=== PATIENT | female | born 1985 | race Two or more races ===

== ENCOUNTER 2018-02-23 10:30 | Observation (INO) | payer OTHER ==
[2018-02-23] MEDS ORDERED: Lidocaine 1% 20 ML MDV INJECT ONE (11:08)
[2018-02-23] MEDS ORDERED: Morphine 10 MG/ML Syringe ONE (11:23)
[2018-02-23] MEDS ORDERED: Morphine 10 MG/ML Syringe IM ONE (11:24)
--- NOTE | 2018-02-23 11:36 | EDM.PDOC ---
ED HPI GENERAL MEDICAL PROBLEM - General Chief Complaint: General Stated Complaint: PAIN IN LEFT BREAST Time Seen by Provider: 02/23/18 10:45 Source of Information: Reports: Patient History Limitations: Reports: No Limitations - History of Present Illness INITIAL COMMENTS - FREE TEXT/NARRATIVE: Presents reporting left breast abscess. The patient states that she's been dealing with this for about a month and has been on a couple of different antibiotics. She did have a culture. She is scheduled to see Dr. Rose next week but the pain got so bad today that she could not take it anymore and the abscesses have now become fluctuant and one has started to drain. No fever or constitutional symptoms. She is not breast-feeding. She is currently on an oral antibiotic. Left Breast Pain Score (Numeric/FACES): 8 - Related Data Allergies Allergy/AdvReac Type Severity Reaction Status Date / Time No Known Allergies Allergy Verified 02/23/18 10:48 Home Meds: Home Meds . 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: Musculoskeletal History: Reports: None Neurological History: Reports: None Psychiatric History: Reports: None Endocrine/Metabolic History: Reports: None Hematologic History: Reports: None Immunologic History: Reports: None Oncologic (Cancer) History: Reports: None Dermatologic History: Reports: None - Infectious Disease History Infectious Disease History: Reports: Chicken Pox - Past Surgical History Head Surgeries/Procedures: Reports: None Cardiovascular Surgical History: Reports: None Female Surgical History: Reports: Tubal Ligation Endocrine Surgical History: Reports: None Neurological Surgical History: Reports: None Dermatological Surgical History: Reports: None Social & Family History - Family History Family Medical History: Noncontributory Hematologic: Reports: Anemia - Tobacco Use Smoking Status *Q: Never Smoker - Recreational Drug Use Recreational Drug Use: No ED ROS GENERAL - Review of Systems Review Of Systems: ROS reveals no pertinent complaints other than HPI. ED EXAM, GENERAL - Physical Exam Exam: See Below Exam Limited By: No Limitations General Appearance: Alert, No Apparent Distress Ears: Normal External Exam Nose: Normal Inspection Throat/Mouth: Normal Inspection Head: Atraumatic, Normocephalic Neck: Normal Inspection Respiratory/Chest: No Respiratory Distress, Lungs Clear Cardiovascular: Regular Rate, Rhythm, No Murmur GI/Abdominal: Soft Neurological: Alert, Oriented Psychiatric: Anxious, Tearful (Due to pain) Skin Exam: Warm, Dry, Intact, Normal Color, Other (Left breast two 2.5 cm abscesses at the 1:00 and 3:00 positions adjacent to the areola. Both are fluctuant and the 3:00 abscess is draining purulent discharge. Light pink surrounding the abscesses approximately 2-3 cm circumferentially) Lymphatic: No Adenopathy ED GENERAL MEDICAL PROCEDURES - Laceration/Wound Repair Left Breast Lac/wound length in cm: 2.5 (Incision and drainage, large amounts of purulent discharge. Packed with quarter inch packing strip) Course - Vital Signs Last Recorded V/S: Last Vital Signs Temp 35.9 C 02/23/18 10:45 Pulse 101 H 02/23/18 10:45 Resp 18 02/23/18 10:45 BP 130/96 H 02/23/18 10:45 Pulse Ox 96 02/23/18 10:45 - Orders/Labs/Meds Meds: Medications Discontinued Medications Generic Name Dose Route Start Last Admin Trade Name Chloé PRN Reason Stop Dose Admin Lidocaine HCl 20 ml 02/23/18 11:08 02/23/18 11:29 Xylocaine 1% INJECT 02/23/18 11:09 20 ml ONETIME ONE Administration Morphine Sulfate 6 mg 02/23/18 11:24 02/23/18 11:28 Morphine IM 02/23/18 11:25 6 mg ONETIME ONE Administration Morphine Sulfate Confirm 02/23/18 11:23 02/23/18 11:27 Morphine Administered 02/23/18 11:24 Not Given Dose 10 mg .ROUTE .STK-MED ONE Departure - Departure Time of Disposition: 11:36 Disposition: Home, Self-Care 01 Condition: Good Clinical Impression: Abscess - Discharge Information Referrals: PCP,Unknown [Primary Care Provider] - Zeina Perez MD [Physician] - Additional Instructions: 1. Warm moist packs 3 times a day for 20 minutes 2 abscesses. The abscess will drain. 2. If packing falls out, leaving it out--it is okay 3. Continue taking antibiotics 4. Follow up with Dr. Perez as previously scheduled on Sunday02/25/2018
[2018-02-25] MEDS ORDERED: Sodium Chloride 0.9% 2.5 ML Syringe FLUSH PRN (14:45)
[2018-02-25] MEDS ORDERED: Sodium Chloride 0.9% 10 ML Syringe FLUSH PRN (14:45)
--- NOTE | 2018-02-25 14:56 | PCM.HP ---
H&P History of Present Illness - General Date of Service: 02/25/18 Admit Problem/Dx: Admission Diagnosis/Problem Admission Diagnosis/Problem Mastitis Source of Information: Patient History Limitations: Reports: No Limitations - History of Present Illness Initial Comments - Free Text/Narative: Patient is a 32-year-old female who presented in my clinic 2 weeks ago with generalized mastitis. In going on for the last month and the patient been on 2 previous rounds of antibiotics. An ultrasound-guided biopsy was done of the breast tissue that showed mastitis with small microabscesses in the breast. There was no drainable fluid collections. An MRI of the left breast was performed that showed diffuse mastitis throughout the breast. When I saw the patient in clinic I switched her onto doxycycline twice a day. She went on a family vacation and while on the antibiotics developed a left-sided breast abscess. She was seen in our emergency room this weekend. There were 2 areas of fluctuance that were drained with a bedside stab incision. These were packed with quarter-inch Nu Gauze and covered with dressings. She is told to change his dressings daily but has not been able to secondary to pain. She denies any systemic fevers but continues to have redness and drainage from the left breast. Left Breast Pain Score (Numeric/FACES): 8 - Related Data Allergies/Adverse Reactions: Allergies Allergy/AdvReac Type Severity Reaction Status Date / Time No Known Allergies Allergy Verified 02/23/18 10:48 Home Medications: Home Meds . 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"- at 15 Neurological History: Reports: None Psychiatric History: Reports: None Endocrine/Metabolic History: Reports: Diabetes, Gestational Other Endocrine/Metabolic History: went away after delivery Hematologic History: Reports: None Immunologic History: Reports: None Oncologic (Cancer) History: Reports: None Dermatologic History: Reports: None - Infectious Disease History Infectious Disease History: Reports: Chicken Pox - Past Surgical History Head Surgeries/Procedures: Reports: None Cardiovascular Surgical History: Reports: None Female Surgical History: Reports: Tubal Ligation Endocrine Surgical History: Reports: None Neurological Surgical History: Reports: None Dermatological Surgical History: Reports: None Social & Family History - Family History Family Medical History: Noncontributory Hematologic: Reports: Anemia - Tobacco Use Smoking Status *Q: Never Smoker Second Hand Smoke Exposure: No - Caffeine Use Caffeine Use: Reports: None - Recreational Drug Use Recreational Drug Use: No H&P Review of Systems - Review of Systems: Review Of Systems: ROS reveals no pertinent complaints other than HPI. Exam - Exam Exam: See Below - Vital Signs Vital Signs: Last Vital Signs Temp 35.9 C 02/23/18 10:45 Pulse 74 02/25/18 14:32 Resp 14 02/25/18 14:32 BP 137/92 H 02/25/18 14:32 Pulse Ox 98 02/25/18 14:32 Weight: 64.365 kg - Exam General: Alert, Oriented, Cooperative, Moderate Distress HEENT: Conjunctiva Clear, Mucosa Moist & [place], Posterior Pharynx Clear Lungs: Clear to Auscultation, Normal Respiratory Effort Cardiovascular: Regular Rate, Regular Rhythm GI/Abdominal Exam: Soft, No Distention Back Exam: Normal Inspection, Full Range of Motion Extremities: Normal Inspection, Normal Range of Motion Skin: Other (2 small incisions on the left breast. One is at the 12 o'clock position and one at the 2 o'clock position. They're actively draining purulent material. There is redness covering the left upper outer quadrant of her breast. The area is exquisitely tender even to slight touch. There is a large amount of edema in the tissues below this.) - Problem List (1) Mastitis SNOMED Code(s): 49391827 ICD Code: N61.0 - MASTITIS WITHOUT ABSCESS Status: Acute Current Visit: Yes (2) Cellulitis SNOMED Code(s): 378198459 ICD Code: L03.90 - CELLULITIS, UNSPECIFIED Status: Acute Current Visit: Yes (3) Abscess SNOMED Code(s): 681440919 ICD Code: L02.91 - CUTANEOUS ABSCESS, UNSPECIFIED Status: Acute Current Visit: Yes Problem List Initiated/Reviewed/Updated: Yes Orders Last 24hrs: Active Orders 24 hr Category Date Time Status Patient Status [ADT] Routine ADT 02/25/18 14:45 Ordered Intake and Output [RC] QSHIFT Care 02/25/18 14:47 Ordered Oxygen Therapy [RC] PRN Care 02/25/18 14:47 Ordered RT Incentive Spirometry [RC] ASDIRECTED Care 02/25/18 14:46 Ordered Up ad Juju [RC] ASDIRECTED Care 02/25/18 14:46 Ordered Verify Patient Consent Obtain [RC] ASDIRECTED Care 02/25/18 14:45 Ordered Vital Signs [RC] PER UNIT ROUTINE Care 02/25/18 14:47 Ordered NPO After Midnight [Nothing per Oral After Midnight Diet 02/25/18 Dinner Ordered Diet] [DIET] Regular Diet [DIET] Diet 02/25/18 Lunch Active CBC W/O DIFF,HEMOGRAM [HEME] AM Lab 02/26/18 05:11 Ordered CBC WITH AUTO DIFF [HEME] Routine Lab 02/25/18 14:45 Ordered HYDROmorphone [Dilaudid] Med 02/25/18 14:48 Ordered 0.5 mg IVPUSH Q1H PRN Lactated Ringers @ 125 MLS/HR(1000ml) Med 02/25/18 14:45 Ordered Lactated Ringers [Ringers, Lactated] 1,000 ml IV ASDIRECTED Ondansetron [Zofran] Med 02/25/18 14:48 Ordered 4 mg IVPUSH Q6H PRN Piperacillin/Tazobactam [Piperacil-Tazobact] 3.375 gm Med 02/25/18 15:00 Ordered Sodium Chloride 0.9% [Normal Saline] 50 ml IV Q8H Sodium Chloride 0.9% [Saline Flush] Med 02/25/18 14:45 Ordered 10 ml FLUSH ASDIRECTED PRN Sodium Chloride 0.9% [Saline Flush] Med 02/25/18 14:45 Ordered 2.5 ml FLUSH ASDIRECTED PRN Peripheral IV Insertion Adult [OM.PC] Routine Oth 02/25/18 14:45 Ordered Resuscitation Status Routine Resus Stat 02/25/18 14:45 Ordered Medication Orders Hydromorphone HCl (Dilaudid) 0.5 mg IVPUSH Q1H PRN PRN Reason: pain Lactated Ringer's (Ringers, Lactated) 1,000 mls @ 125 mls/hr IV ASDIRECTED RAUL Piperacillin Sod/Tazobactam (Sod 3.375 gm/ Sodium Chloride) 50 mls @ 100 mls/ hr IV Q8H RAUL Ondansetron HCl (Zofran) 4 mg IVPUSH Q6H PRN PRN Reason: Nausea/Vomiting Sodium Chloride (Saline Flush) 10 ml FLUSH ASDIRECTED PRN PRN Reason: Keep Vein Open Sodium Chloride (Saline Flush) 2.5 ml FLUSH ASDIRECTED PRN PRN Reason: Keep Vein Open Assessment/Plan Comment:: The patient will require a more thorough debridement which will have to be done in the operating room The patient and I discussed the procedure. I'll perform an excisional debridement of the 2 areas and explore the breast for any undrained fluid collections. We discussed the procedure as well as expected perioperative course including the need for postoperative dressing changes. We discussed the need for continued antibiotic therapy as well. I will admit her for IV antibiotics and fluid resuscitation tonight given the redness and exquisite tenderness over the left breast. Most likely she'll be transitioned back to oral doxycycline after the procedure.
[2018-02-25] MEDS: Lactated Ringers 1,000 ML IV SCH (16:27)
[2018-02-25] MEDS: Piperacillin/Tazobactam 3.375 GM in Sodium Chloride 0.9% 50 ML IV SCH ×2 (16:27→23:52)
[2018-02-25] MEDS: Acetaminophen/oxyCODONE 325-5 MG Tab PO PRN ×2 (17:31→23:53)
[2018-02-25] MEDS ORDERED: Polyethylene Glycol 3350 Powder 17 GM Packet PO ONE (20:15)
[2018-02-26] MEDS: Lactated Ringers 1,000 ML IV SCH ×2 (01:29→09:59)
[2018-02-26] MEDS: Piperacillin/Tazobactam 3.375 GM in Sodium Chloride 0.9% 50 ML IV SCH ×3 (06:49→22:48)
[2018-02-26] MEDS: HYDROmorphone 1 MG/ML Syringe IVPUSH PRN ×4 (09:49→20:11)
[2018-02-26] MEDS: Polyethylene Glycol 3350 Powder 17 GM Packet PO SCH (09:53)
--- NOTE | 2018-02-26 10:27 | PCM.PN ---
- General Info Date of Service: 02/26/18 Functional Status: Reports: Pain Controlled, Other (Swelling and redness improved overnight. Patient feeling well and pain improving. ) - Review of Systems General: Reports: No Symptoms Pulmonary: Reports: No Symptoms Cardiovascular: Reports: No Symptoms Gastrointestinal: Reports: No Symptoms Skin: Reports: No Symptoms - Patient Data Vitals - Most Recent: Last Vital Signs Temp 36.4 C 02/26/18 08:00 Pulse 67 02/26/18 08:00 Resp 15 02/26/18 08:00 BP 125/72 02/26/18 08:00 Pulse Ox 97 02/26/18 08:00 Weight - Most Recent: 64.365 kg I&O - Last 24 Hours: Intake & Output 02/25/18 02/26/18 02/26/18 22:59 06:59 14:59 Intake Total 1569 Balance 1569 Lab Results Last 24 Hours: Laboratory Results - last 24 hr 02/25/18 02/26/18 Range/Units 15:00 05:40 WBC 10.23 9.85 (4.0-11.0) K/uL RBC 4.28 L 4.14 L (4.30-5.90) M/uL Hgb 9.6 L 9.2 L (12.0-16.0) g/dL Hct 31.6 L 30.6 L (36.0-46.0) % MCV 73.8 L 73.9 L (80.0-98.0) fL MCH 22.4 L 22.2 L (27.0-32.0) pg MCHC 30.4 L 30.1 L (31.0-37.0) g/dL RDW Std Deviation 46.9 46.6 (28.0-62.0) fl RDW Coeff of Percy 17 H 17 H (11.0-15.0) % Plt Count 399 389 (150-400) K/uL MPV 9.60 9.50 (7.40-12.00) fL Neut % (Auto) 64.5 (48.0-80.0) % Lymph % (Auto) 25.4 (16.0-40.0) % [place] % (Auto) 6.4 (0.0-15.0) % Eos % (Auto) 3.2 (0.0-7.0) % Baso % (Auto) 0.5 (0.0-1.5) % Neut # (Auto) 6.6 H (1.4-5.7) K/uL Lymph # (Auto) 2.6 H (0.6-2.4) K/uL [place] # (Auto) 0.7 (0.0-0.8) K/uL Eos # (Auto) 0.3 (0.0-0.7) K/uL Baso # (Auto) 0.1 (0.0-0.1) K/uL Nucleated RBC % 0.0 0.0 /100WBC Nucleated RBCs # 0 0 K/uL Med Orders - Current: Current Medications Hydromorphone HCl (Dilaudid) 0.5 mg IVPUSH Q1H PRN PRN Reason: pain Last Admin: 02/26/18 09:49 Dose: 0.5 mg Lactated Ringer's (Ringers, Lactated) 1,000 mls @ 125 mls/hr IV ASDIRECTED [facility] Last Admin: 02/26/18 09:59 Dose: 125 mls/hr Piperacillin Sod/Tazobactam (Sod 3.375 gm/ Sodium Chloride) 50 mls @ 100 mls/ hr IV Q8H [facility] Last Admin: 02/26/18 06:49 Dose: 100 mls/hr Ondansetron HCl (Zofran) 4 mg IVPUSH Q6H PRN PRN Reason: Nausea/Vomiting Oxycodone/Acetaminophen (Percocet 325-5 Mg) 2 tab PO Q4H PRN PRN Reason: Pain Last Admin: 02/25/18 23:53 Dose: 1 tab Polyethylene Glycol (Miralax) 17 gm PO DAILY [facility] Last Admin: 02/26/18 09:53 Dose: Not Given Sodium Chloride (Saline Flush) 10 ml FLUSH ASDIRECTED PRN PRN Reason: Keep Vein Open Sodium Chloride (Saline Flush) 2.5 ml FLUSH ASDIRECTED PRN PRN Reason: Keep Vein Open Discontinued Medications Lidocaine HCl (Xylocaine 1%) 20 ml INJECT ONETIME ONE Stop: 02/23/18 11:09 Last Admin: 02/23/18 11:29 Dose: 20 ml Morphine Sulfate (Morphine) 6 mg IM ONETIME ONE Stop: 02/23/18 11:25 Last Admin: 02/23/18 11:28 Dose: 6 mg Morphine Sulfate (Morphine) Confirm Administered Dose 10 mg .ROUTE .STK-MED ONE Stop: 02/23/18 11:24 Last Admin: 02/23/18 11:27 Dose: Not Given Polyethylene Glycol (Miralax) 17 gm PO ONETIME ONE Stop: 02/25/18 20:16 Last Admin: 02/25/18 20:51 Dose: 17 gm - Exam Quality Assessment: Supplemental Oxygen General: Alert, Oriented HEENT: Pupils Equal, Pupils Reactive Lungs: Normal Respiratory Effort Cardiovascular: Regular Rate Skin: Warm, Dry, Intact, Other (cellulitis improved around left breast) - Problem List & Annotations (1) Mastitis SNOMED Code(s): 34340627 Code(s): N61.0 - MASTITIS WITHOUT ABSCESS Status: Acute Current Visit: Yes (2) Cellulitis SNOMED Code(s): 299109898 Code(s): L03.90 - CELLULITIS, UNSPECIFIED Status: Acute Current Visit: Yes (3) Abscess SNOMED Code(s): 013622621 Code(s): L02.91 - CUTANEOUS ABSCESS, UNSPECIFIED Status: Acute Current Visit: Yes - Problem List Review Problem List Initiated/Reviewed/Updated: Yes - My Orders Last 24 Hours: My Active Orders 02/25/18 14:45 Patient Status [ADT] Routine Verify Patient Consent Obtain [RC] ASDIRECTED Lactated Ringers [Ringers, Lactated] 1,000 ml IV ASDIRECTED Sodium Chloride 0.9% [Saline Flush] 10 ml FLUSH ASDIRECTED PRN Sodium Chloride 0.9% [Saline Flush] 2.5 ml FLUSH ASDIRECTED PRN Peripheral IV Insertion Adult [OM.PC] Routine Resuscitation Status Routine 02/25/18 14:46 RT Incentive Spirometry [RC] ASDIRECTED Up ad Juju [RC] ASDIRECTED 02/25/18 14:47 Intake and Output [RC] Q12HR Oxygen Therapy [RC] PRN Vital Signs [RC] Q4HR 02/25/18 14:48 HYDROmorphone [Dilaudid] 0.5 mg IVPUSH Q1H PRN Ondansetron [Zofran] 4 mg IVPUSH Q6H PRN 02/25/18 14:56 Acetaminophen/oxyCODONE [Percocet 325-5 MG] 2 tab PO Q4H PRN 02/25/18 15:00 Piperacillin/Tazobactam [Piperacil-Tazobact] 3.375 gm Sodium Chloride 0.9% [ Normal Saline] 50 ml IV Q8H 02/25/18 Dinner NPO After Midnight [Nothing per Oral After Midnight Diet] [DIET] 02/25/18 Lunch Regular Diet [DIET] 02/26/18 09:00 Polyethylene Glycol 3350 [MiraLAX] 17 gm PO DAILY - Plan Plan:: -Pain: Continue IV dilaudid and percocet prn -GI: Npo until surgery -Surgery today for operative debridement. Will assess patient afterwards for ability to discharge.
[2018-02-26] MEDS ORDERED: Bupivacaine 0.5% 30 ML SDV ONE (14:02)
[2018-02-26] MEDS ORDERED: Lidocaine 2% with EPINEPHrine 1:100,000 20 ML MDV ONE (14:02)
[2018-02-26] MEDS ORDERED: Lidocaine 1% 20 ML MDV ONE (14:02)
[2018-02-26] MEDS ORDERED: fentaNYL 250 MCG/5 ML SDV ONE (14:03)
[2018-02-26] MEDS ORDERED: Lidocaine 2% 5 ML SDV ONE (14:03)
[2018-02-26] MEDS ORDERED: Midazolam 1 MG/ML 2 ML SDV ONE (14:03)
[2018-02-26] MEDS ORDERED: Propofol 200 MG/20 ML SDV ONE (14:03)
[2018-02-26] MEDS ORDERED: Ondansetron 4 MG/2 ML SDV ONE (14:03)
--- NOTE | 2018-02-26 14:47 | PCM.PREANE ---
Preanesthetic Assessment - Procedure Proposed Procedure: I and D Left reast abscess - Anesthesia/Transfusion/Family Hx Anesthesia History: Prior Anesthesia Without Reaction Transfusion History: No Prior Transfusion(s) Intubation History: Unknown - Review of Systems General: Other (pain left breast) Pulmonary: No Symptoms Cardiovascular: No Symptoms Gastrointestinal: No Symptoms Neurological: No Symptoms Other: Reports: None - Physical Assessment NPO Status Date: 02/25/18 NPO Status Time: 23:00 O2 Sat by Pulse Oximetry: 97 Respiratory Rate: 18 Vital Signs: Last Vital Signs Temp 97.5 F 02/26/18 13:45 Pulse 65 02/26/18 13:45 Resp 18 02/26/18 13:45 BP 133/81 02/26/18 13:45 Pulse Ox 97 02/26/18 13:45 Height: 5 ft 3 in Weight: 141 lb 14.4 oz Mental Status: Alert & Oriented x3 Airway Class: Mallampati = 1 Dentition: Reports: Normal Dentition Thyro-Mental Finger Breadths: 3 Mouth Opening Finger Breadths: 3 ROM/Head Extension: Full Lungs: Clear to Auscultation, Normal Respiratory Effort Cardiovascular: Regular Rate, Regular Rhythm, No Murmurs - Lab Values: Laboratory Last Values WBC 9.85 K/uL (4.0-11.0) 02/26/18 05:40 RBC 4.14 M/uL (4.30-5.90) L 02/26/18 05:40 Hgb 9.2 g/dL (12.0-16.0) L 02/26/18 05:40 Hct 30.6 % (36.0-46.0) L 02/26/18 05:40 MCV 73.9 fL (80.0-98.0) L 02/26/18 05:40 MCH 22.2 pg (27.0-32.0) L 02/26/18 05:40 MCHC 30.1 g/dL (31.0-37.0) L 02/26/18 05:40 RDW Std Deviation 46.6 fl (28.0-62.0) 02/26/18 05:40 RDW Coeff of Percy 17 % (11.0-15.0) H 02/26/18 05:40 Plt Count 389 K/uL (150-400) 02/26/18 05:40 MPV 9.50 fL (7.40-12.00) 02/26/18 05:40 Neut % (Auto) 64.5 % (48.0-80.0) 02/25/18 15:00 Lymph % (Auto) 25.4 % (16.0-40.0) 02/25/18 15:00 [place] % (Auto) 6.4 % (0.0-15.0) 02/25/18 15:00 Eos % (Auto) 3.2 % (0.0-7.0) 02/25/18 15:00 Baso % (Auto) 0.5 % (0.0-1.5) 02/25/18 15:00 Neut # (Auto) 6.6 K/uL (1.4-5.7) H 02/25/18 15:00 Lymph # (Auto) 2.6 K/uL (0.6-2.4) H 02/25/18 15:00 [place] # (Auto) 0.7 K/uL (0.0-0.8) 02/25/18 15:00 Eos # (Auto) 0.3 K/uL (0.0-0.7) 02/25/18 15:00 Baso # (Auto) 0.1 K/uL (0.0-0.1) 02/25/18 15:00 Nucleated RBC % 0.0 /100WBC 02/26/18 05:40 Nucleated RBCs # 0 K/uL 02/26/18 05:40 - Allergies Allergies/Adverse Reactions: Allergies Allergy/AdvReac Type Severity Reaction Status Date / Time No Known Allergies Allergy Verified 02/23/18 10:48 - Blood Blood Available: No Product(s) Available: None - Anesthesia Plan Pre-Op Medication Ordered: None - Acknowledgements Anesthesia Type Planned: General Anesthesia (LMA) Pt an Appropriate Candidate for the Planned Anesthesia: Yes Alternatives and Risks of Anesthesia Discussed w Pt/Guardian: Yes Pt/Guardian Understands and Agrees with Anesthesia Plan: Yes PreAnesthesia Questionnaire - Past Health History Medical/Surgical History: Denies Medical/Surgical History HEENT History: Reports: Other (See Below) Other HEENT History: patient is wearing eyeglasses Cardiovascular History: Reports: None Respiratory History: Reports: None Gastrointestinal History: Reports: None Genitourinary History: Reports: None 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: Musculoskeletal History: Reports: None, Other (See Below) Other Musculoskeletal History: "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"- at 15 Neurological History: Reports: None Psychiatric History: Reports: None Endocrine/Metabolic History: Reports: Diabetes, Gestational Other Endocrine/Metabolic History: went away after delivery Hematologic History: Reports: None Immunologic History: Reports: None Oncologic (Cancer) History: Reports: None Dermatologic History: Reports: None - Infectious Disease History Infectious Disease History: Reports: Chicken Pox - Past Surgical History Head Surgeries/Procedures: Reports: None Cardiovascular Surgical History: Reports: None Female Surgical History: Reports: Tubal Ligation Endocrine Surgical History: Reports: None Neurological Surgical History: Reports: None Dermatological Surgical History: Reports: None - SUBSTANCE USE Smoking Status *Q: Never Smoker Second Hand Smoke Exposure: No Recreational Drug Use History: No - HOME MEDS Home Medications: Home Meds . [No Known Home Meds] 05/26/16 [History] - CURRENT (IN HOUSE) MEDS Current Meds: Current Medications Hydromorphone HCl (Dilaudid) 0.5 mg IVPUSH Q1H PRN PRN Reason: pain Last Admin: 02/26/18 09:49 Dose: 0.5 mg Lactated Ringer's (Ringers, Lactated) 1,000 mls @ 125 mls/hr IV ASDIRECTED [facility] Last Admin: 02/26/18 09:59 Dose: 125 mls/hr Piperacillin Sod/Tazobactam (Sod 3.375 gm/ Sodium Chloride) 50 mls @ 100 mls/ hr IV Q8H [facility] Last Admin: 02/26/18 14:06 Dose: 100 mls/hr Ondansetron HCl (Zofran) 4 mg IVPUSH Q6H PRN PRN Reason: Nausea/Vomiting Oxycodone/Acetaminophen (Percocet 325-5 Mg) 2 tab PO Q4H PRN PRN Reason: Pain Last Admin: 02/25/18 23:53 Dose: 1 tab Polyethylene Glycol (Miralax) 17 gm PO DAILY [facility] Last Admin: 02/26/18 09:53 Dose: Not Given Sodium Chloride (Saline Flush) 10 ml FLUSH ASDIRECTED PRN PRN Reason: Keep Vein Open Sodium Chloride (Saline Flush) 2.5 ml FLUSH ASDIRECTED PRN PRN Reason: Keep Vein Open Discontinued Medications Bupivacaine HCl (Marcaine 0.5%) Confirm Administered Dose 30 ml .ROUTE .STK-MED ONE Stop: 02/26/18 14:03 Fentanyl (Sublimaze) Confirm Administered Dose 250 mcg .ROUTE .STK-MED ONE Stop: 02/26/18 14:04 Lidocaine (Xylocaine-Mpf 2%) Confirm Administered Dose 5 ml .ROUTE .STK-MED ONE Stop: 02/26/18 14:04 Lidocaine HCl (Xylocaine 1%) 20 ml INJECT ONETIME ONE Stop: 02/23/18 11:09 Last Admin: 02/23/18 11:29 Dose: 20 ml Lidocaine HCl (Xylocaine 1%) Confirm Administered Dose 20 ml .ROUTE .STK-MED ONE Stop: 02/26/18 14:03 Lidocaine/Epinephrine (Xylocaine 2% With Epinephrine 1:100,000) Confirm Administered Dose 20 ml .ROUTE .ST-MED ONE Stop: 02/26/18 14:03 Midazolam HCl (Versed 1 Mg/Ml) Confirm Administered Dose 2 mg .ROUTE .ST-MED ONE Stop: 02/26/18 14:04 Morphine Sulfate (Morphine) 6 mg IM ONETIME ONE Stop: 02/23/18 11:25 Last Admin: 02/23/18 11:28 Dose: 6 mg Morphine Sulfate (Morphine) Confirm Administered Dose 10 mg .ROUTE .STK-MED ONE Stop: 02/23/18 11:24 Last Admin: 02/23/18 11:27 Dose: Not Given Ondansetron HCl (Zofran) Confirm Administered Dose 4 mg .ROUTE .STK-MED ONE Stop: 02/26/18 14:04 Polyethylene Glycol (Miralax) 17 gm PO ONETIME ONE Stop: 02/25/18 20:16 Last Admin: 02/25/18 20:51 Dose: 17 gm Propofol (Diprivan 20 Ml) Confirm Administered Dose 200 mg .ROUTE .STK-MED ONE Stop: 02/26/18 14:04
--- NOTE | 2018-02-26 14:53 | PCM.OPNOTE ---
- General Post-Op/Procedure Note Date of Surgery/Procedure: 02/26/18 Operative Procedure(s): Left breast incision and drainage Findings: 2.5 x 1 x 4 cm abscess at 12 oclock position that tracks to the areola. 2.5 x 1.2 x 3 cm abscess at 2 oclock position. Milky purulent discharge from wounds that is draining from nipple as well with palpation. Pre Op Diagnosis: Mastitis, cellulitis, breast abscess Post-Op Diagnosis: Mastitis and breast abscess Anesthesia Technique: General LMA Primary Surgeon: Zeina Perez Condition: Good Free Text/Narrative:: Intake & Output 02/25/18 02/26/18 02/26/18 22:59 06:59 14:59 Intake Total 1569 1049 Balance 1569 1042
[2018-02-26] MEDS: HYDROmorphone 2 MG/ML SDV ONE ×2 (15:10→15:15)
--- NOTE | 2018-02-26 15:15 | PCM.POSTAN ---
POST ANESTHESIA ASSESSMENT - MENTAL STATUS Mental Status: Alert, Oriented Free Text/Narrative:: Probably will require analgesics for the tolerance of surgical intervention today. - RESPIRATORY Respiratory Status: Respiratory Rate WNL, Airway Patent, O2 Saturation Stable - CARDIOVASCULAR CV Status: Pulse Rate WNL, Blood Pressure Stable - GASTROINTESTINAL GI Status: No Symptoms - PAIN Pain Score: 6 (dilaudid given for pain) - POST OP HYDRATION Hydration Status: Adequate & Stable
[2018-02-26] MEDS: Ondansetron 4 MG/2 ML SDV IVPUSH PRN (17:51)
[2018-02-26] MEDS: Acetaminophen/oxyCODONE 325-5 MG Tab PO PRN (20:13)
[2018-02-27] MEDS: Lactated Ringers 1,000 ML IV SCH (00:50)
[2018-02-27] MEDS: Piperacillin/Tazobactam 3.375 GM in Sodium Chloride 0.9% 50 ML IV SCH ×2 (06:01→13:59)
[2018-02-27] MEDS: Acetaminophen/oxyCODONE 325-5 MG Tab PO PRN ×3 (06:02→14:51)
--- NOTE | 2018-02-27 08:38 | PCM48HPAN ---
Post Anesthesia Note - EVALUATION WITHIN 48HRS OF ANESTHETIC Vital Signs in Normal Range: Yes Patient Participated in Evaluation: Yes Respiratory Function Stable: Yes Airway Patent: Yes Cardiovascular Function Stable: Yes Hydration Status Stable: Yes Pain Control Satisfactory: Yes Nausea and Vomiting Control Satisfactory: Yes Mental Status Recovered: Yes Resp Rate: 18
[2018-02-27] MEDS: Polyethylene Glycol 3350 Powder 17 GM Packet PO SCH (09:56)
[2018-02-27] MEDS: Ondansetron 4 MG/2 ML SDV IVPUSH PRN (10:10)
[2018-02-27] MEDS ORDERED: Sodium Chloride 0.9% 2.5 ML Syringe FLUSH PRN (10:27)
[2018-02-27] MEDS ORDERED: Sodium Chloride 0.9% 10 ML Syringe FLUSH PRN (10:27)
[2018-02-27] MEDS: HYDROmorphone 1 MG/ML Syringe IVPUSH PRN (11:40)
--- NOTE | 2018-02-27 12:57 | PCM.DCSUM1 ---
Discharge Summary - Hospital Course Free Text/Narrative:: Patient presented to my clinic with cellulitis associated with mastitis and breast abscesses. She had been treated for left sided mastitis for >5 weeks with various antibiotics. I placed her on doxycycline. Afterwards she developed two fluctuant areas on her left breast. She was seen in the ED and they were superficially drained. She did not change the packing and came in to see me Sunday. The wounds were actively draining purulent material. The breast was warm , tender, and erythematous. She was admited to the hospital for IV antibiotics, resuscitation and operative debridement. Her cellulitis improved overnight with IV antibiotics. Intraoperatively she was found to have two large abscess cavities. One of these tracked to the areola. She had milky drainage from that nipple. Her bHCG was negative but her prolactin level was elevated. Her first dressing change went well with healthy appearing wound bases. The patients pain is well controlled and her vitals are stable. She is cleared for discharge. - Discharge Data Discharge Date: 02/27/18 Discharge Disposition: Home, Self-Care 01 Condition: Good - Discharge Diagnosis/Problem(s) (1) Mastitis SNOMED Code(s): 87120004 ICD Code: N61.0 - MASTITIS WITHOUT ABSCESS Status: Acute Current Visit: Yes (2) Cellulitis SNOMED Code(s): 470707113 ICD Code: L03.90 - CELLULITIS, UNSPECIFIED Status: Acute Current Visit: Yes (3) Abscess SNOMED Code(s): 570263507 ICD Code: L02.91 - CUTANEOUS ABSCESS, UNSPECIFIED Status: Acute Current Visit: Yes (4) Increased prolactin level SNOMED Code(s): 538080844 ICD Code: E22.9 - HYPERFUNCTION OF PITUITARY GLAND, UNSPECIFIED Status: Acute Current Visit: Yes - Patient Summary/Data Operative Procedure(s) Performed: Left breast incision and drainage - Patient Instructions Diet: Regular Diet as Tolerated Activity: Rest and Relax Today Driving: Do Not Drive Showering/Bathing: May Shower Wound/Incision Care: Keep Operative Site/Wound Site Clean and Dry Notify Provider of: Fever, Increased Pain, Swelling and Redness, Nausea and/or Vomiting - Discharge Plan Prescriptions/Med Rec: Amoxicillin/Clavulanate K [Augmentin 875-125 MG] 1 tab PO BID #14 tablet Home Medications: Home Meds Amoxicillin/Clavulanate K [Augmentin 875-125 MG] 1 tab PO BID #14 tablet [Rx] Patient Handouts: Wound Infection, [id number], Cellulitis, Adult, Easy-to- Read, Incision and Drainage, Care After Referrals: Zeina Perez MD [Physician] - 03/01/18 1:30 pm PCP,Unknown [Primary Care Provider] - - Discharge Summary/Plan Comment DC Time >30 min.: No - General Info Functional Status: Reports: Pain Controlled, Tolerating Diet, Ambulating - Review of Systems General: Reports: No Symptoms Pulmonary: Reports: No Symptoms Cardiovascular: Reports: No Symptoms Gastrointestinal: Reports: No Symptoms Skin: Reports: No Symptoms - Patient Data Vitals - Most Recent: Last Vital Signs Temp 35.8 C 02/27/18 08:00 Pulse 65 02/27/18 08:00 Resp 18 02/27/18 08:38 BP 126/78 02/27/18 08:00 Pulse Ox 93 L 02/27/18 08:00 Weight - Most Recent: 64.365 kg I&O - Last 24 hours: Intake & Output 02/26/18 02/27/18 02/27/18 22:59 06:59 14:59 Intake Total 1250 550 Output Total 1450 1200 Balance -200 -650 Lab Results - Last 24 hrs: Laboratory Results - last 24 hr 02/26/18 02/26/18 Range/Units 05:40 05:40 Prolactin 71 H (0-27) ng/mL HCG, Qual NEGATIVE (NEG) MAREN Results - Last 24 hrs: Microbiology 02/26/18 14:25 Gram Stain - Preliminary Breast, Left Med Orders - Current: Current Medications Hydromorphone HCl (Dilaudid) 0.5 mg IVPUSH Q1H PRN PRN Reason: pain Last Admin: 02/27/18 11:40 Dose: 0.5 mg Piperacillin Sod/Tazobactam (Sod 3.375 gm/ Sodium Chloride) 50 mls @ 100 mls/ hr IV Q8H RAUL Last Admin: 02/27/18 06:01 Dose: 100 mls/hr Ondansetron HCl (Zofran) 4 mg IVPUSH Q6H PRN PRN Reason: Nausea/Vomiting Last Admin: 02/27/18 10:10 Dose: 4 mg Oxycodone/Acetaminophen (Percocet 325-5 Mg) 2 tab PO Q4H PRN PRN Reason: Pain Last Admin: 02/27/18 10:09 Dose: 1 tab Polyethylene Glycol (Miralax) 17 gm PO DAILY [facility] Last Admin: 02/27/18 09:56 Dose: 17 gm Sodium Chloride (Saline Flush) 10 ml FLUSH ASDIRECTED PRN PRN Reason: Keep Vein Open Sodium Chloride (Saline Flush) 2.5 ml FLUSH ASDIRECTED PRN PRN Reason: Keep Vein Open Sodium Chloride (Saline Flush) 10 ml FLUSH ASDIRECTED PRN PRN Reason: Keep Vein Open Sodium Chloride (Saline Flush) 2.5 ml FLUSH ASDIRECTED PRN PRN Reason: Keep Vein Open Discontinued Medications Bupivacaine HCl (Marcaine 0.5%) Confirm Administered Dose 30 ml .ROUTE .STK-MED ONE Stop: 02/26/18 14:03 Fentanyl (Sublimaze) Confirm Administered Dose 250 mcg .ROUTE .STK-MED ONE Stop: 02/26/18 14:04 Hydromorphone HCl (Dilaudid) Confirm Administered Dose 2 mg .ROUTE .STK-MED ONE Stop: 02/26/18 15:11 Last Admin: 02/26/18 15:15 Dose: 0.5 mg Lactated Ringer's (Ringers, Lactated) 1,000 mls @ 125 mls/hr IV ASDIRECTED [facility] Last Admin: 02/27/18 00:50 Dose: 125 mls/hr Lidocaine (Xylocaine-Mpf 2%) Confirm Administered Dose 5 ml .ROUTE .STK-MED ONE Stop: 02/26/18 14:04 Lidocaine HCl (Xylocaine 1%) 20 ml INJECT ONETIME ONE Stop: 02/23/18 11:09 Last Admin: 02/23/18 11:29 Dose: 20 ml Lidocaine HCl (Xylocaine 1%) Confirm Administered Dose 20 ml .ROUTE .STK-MED ONE Stop: 02/26/18 14:03 Lidocaine/Epinephrine (Xylocaine 2% With Epinephrine 1:100,000) Confirm Administered Dose 20 ml .ROUTE .STK-MED ONE Stop: 02/26/18 14:03 Midazolam HCl (Versed 1 Mg/Ml) Confirm Administered Dose 2 mg .ROUTE .STK-MED ONE Stop: 02/26/18 14:04 Morphine Sulfate (Morphine) 6 mg IM ONETIME ONE Stop: 02/23/18 11:25 Last Admin: 02/23/18 11:28 Dose: 6 mg Morphine Sulfate (Morphine) Confirm Administered Dose 10 mg .ROUTE .STK-MED ONE Stop: 02/23/18 11:24 Last Admin: 02/23/18 11:27 Dose: Not Given Ondansetron HCl (Zofran) Confirm Administered Dose 4 mg .ROUTE .STK-MED ONE Stop: 02/26/18 14:04 Polyethylene Glycol (Miralax) 17 gm PO ONETIME ONE Stop: 02/25/18 20:16 Last Admin: 02/25/18 20:51 Dose: 17 gm Propofol (Diprivan 20 Ml) Confirm Administered Dose 200 mg .ROUTE .STK-MED ONE Stop: 02/26/18 14:04 - Exam General: Reports: Alert, Oriented HEENT: Reports: Pupils Equal, Pupils Reactive Lungs: Reports: Normal Respiratory Effort Cardiovascular: Reports: Regular Rate GI/Abdominal Exam: Soft Skin: Reports: Warm, Dry, Intact, Other (Large amount of edema around the upper outer quadrant of the left breast. Wounds at the 12 and 2 oclock position appear red and granular. No evidence of cellulitis. ) Psy/Mental Status: Reports: Alert, Normal Affect
--- NOTE | 2018-02-27 13:20 | OR ---
SURGEON: MARV DIALLO MD DATE OF PROCEDURE: 02/26/2018 PREOPERATIVE DIAGNOSIS: Left breast abscess. POSTOPERATIVE DIAGNOSIS: Left breast abscess. PROCEDURE PERFORMED: Incision and drainage of left breast abscess x2. ANESTHESIA: General LMA. FLUIDS: See anesthesia record. ESTIMATED BLOOD LOSS: 10 mL. FINDINGS: A 2.5 x 1 x 4 cm abscess at the 12 o'clock position that tracked to the areola. 2.5 x 1.2 x 3 cm abscess at the 2 o'clock position. Milky drainage from the nipple. No purulent drainage from the wounds. Both abscesses seem to connect, but I cannot find the connection. COMPLICATIONS: None. INDICATIONS: The patient is a 32-year-old female, who has been dealing with a recent bout of mastitis. This has been chronic and she has been on multiple antibiotics. Over the last week, she developed two areas of fluctuance. She was seen in the ER this weekend where they were incised. She has had continuing drainage and then developed cellulitis around the wound. She was admitted to the hospital last night. She was started on IV Zosyn and her cellulitis has resolved. The patient in need of further debridement. We decided the best place to do this, it was in the operating room. The patient and I discussed the procedure as well as expected perioperative course. We discussed the risks including bleeding and infection, or damage to surrounding structures. The patient verbalized understanding and wishes to proceed. PROCEDURE IN DETAIL: The patient was brought into the OR and placed on the OR table in supine position. A time-out was completed verifying the patient's name, age, date of , allergies, and procedure to be performed. General LMA anesthesia was induced. The left arm was tucked to the patient's side. The left chest and neck were prepped and draped in usual standard fashion. A culture was taken of both wounds and sent for anaerobic, aerobic, and Gram stain. I then debrided the previously incised wounds sharply with a 15 blade. The skin that I removed was then sent to pathology, labeled as breast skin. Using a hemostat, I then explored the wounds. The patient was found to have a much larger and deeper abscesses at both sites. These were bluntly debrided. Some of the tissue within the wounds were sent to pathology, labeled as breast tissue. The wounds were then copiously irrigated with normal saline. Upon exploring the 12 o'clock position, wound seemed to track towards the areola and underneath it. When I applied pressure to the areola, she expressed milky discharge consistent with , not necessarily purulent material. The wounds were then measured at the 12 o'clock position, abscess measured 2.5 x 1 x 4 cm. The abscess at the 2 o'clock position measured 2.5 x 1.2 x 3 cm. When I would irrigate one, fluid would fill up in the other. I explored the wound, but was unable to find a connection. Hemostasis was achieved with electrocautery. The wounds were then packed with half-inch Nu Gauze soaked in normal saline. Fluffs and ABD pads were applied over the top. The dressings were then secured in place with an abdominal binder. The patient was then extubated and taken to PACU in stable condition. ELLIOT RODRIGUEZ /[id number]
[2018-02-27 14:27] VITALS: BP 125/83
== END 2018-02-27 15:10 | disposition home or self-care (01) ==
LOC: MW.ED 10:30 → MW.MS 02-25 13:49
PROVIDERS: ADMIT Surgery; ATTEND Surgery
DX: N61.1 Abscess of the breast and nipple (principal); E22.9 Hyperfunction of pituitary gland, unspecified; Z98.51 Tubal ligation status
CPT/HCPCS: 00400; 36415; 84146; 84703; 85025; 85027; 87070; 87075; 87205; 88305; 96372; 99283-25; A9270-GY; J1170; J2250; J2270; J2405; J2543; J2704; J3010; J7050; J7120

== ENCOUNTER 2018-03-19 09:56 | Day surgery (SDC) | payer OTHER ==
[~2018-03-19 09:56] MED LIST: Lactated Ringers 1,000 ML IV SCH; Sodium Chloride 0.9% 10 ML Syringe FLUSH PRN; Sodium Chloride 0.9% 2.5 ML Syringe FLUSH PRN; ceFAZolin 1 GM in Premix Bag 1 BAG IV ONE
[2018-03-19] MEDS ORDERED: ceFAZolin 1 GM Vial ONE (10:19)
[2018-03-19] MEDS ORDERED: Bupivacaine 0.5% 30 ML SDV ONE (10:20)
[2018-03-19] MEDS ORDERED: Lidocaine 2% 5 ML SDV ONE (10:32)
[2018-03-19] MEDS ORDERED: Propofol 200 MG/20 ML SDV ONE (10:32)
[2018-03-19] MEDS ORDERED: fentaNYL 250 MCG/5 ML SDV ONE (10:33)
[2018-03-19] MEDS ORDERED: Ondansetron 4 MG/2 ML SDV ONE (10:33)
[2018-03-19] MEDS ORDERED: Midazolam 1 MG/ML 2 ML SDV ONE (10:33)
--- NOTE | 2018-03-19 11:01 | PCM.PREANE ---
Preanesthetic Assessment - Anesthesia/Transfusion/Family Hx Anesthesia History: Prior Anesthesia Without Reaction Family History of Anesthesia Reaction: No Transfusion History: No Prior Transfusion(s) Intubation History: Unknown - Review of Systems General: No Symptoms Pulmonary: No Symptoms Cardiovascular: No Symptoms Gastrointestinal: No Symptoms Neurological: No Symptoms Other: Reports: None - Physical Assessment NPO Status Date: 03/18/18 NPO Status Time: 21:00 O2 Sat by Pulse Oximetry: 99 Respiratory Rate: 16 Vital Signs: Last Vital Signs Temp Pulse 74 03/19/18 10:20 Resp 16 03/19/18 10:20 BP 136/85 03/19/18 10:20 Pulse Ox 99 03/19/18 10:20 Height: 1.6 m Weight: 63.503 kg ASA Class: 2 Mental Status: Alert & Oriented x3 Airway Class: Mallampati = 1 Dentition: Reports: Normal Dentition ROM/Head Extension: Full Lungs: Clear to Auscultation, Normal Respiratory Effort Cardiovascular: Regular Rate, Regular Rhythm - Lab Values: Laboratory Last Values Urine HCG, Qual NEGATIVE (NEGATIVE) 03/19/18 10:00 - Allergies Allergies/Adverse Reactions: Allergies Allergy/AdvReac Type Severity Reaction Status Date / Time No Known Allergies Allergy Verified 03/15/18 16:54 - Anesthesia Plan Pre-Op Medication Ordered: None - Acknowledgements Anesthesia Type Planned: General Anesthesia Pt an Appropriate Candidate for the Planned Anesthesia: Yes Alternatives and Risks of Anesthesia Discussed w Pt/Guardian: Yes Pt/Guardian Understands and Agrees with Anesthesia Plan: Yes Additional Comments: PMH: gerd, mastitis with abcess PLAN: GA-LMA PreAnesthesia Questionnaire - Past Health History Medical/Surgical History: Denies Medical/Surgical History HEENT History: Reports: Other (See Below) Other HEENT History: patient is wearing eyeglasses Cardiovascular History: Reports: None Respiratory History: Reports: None Gastrointestinal History: Reports: GERD Genitourinary History: Reports: None 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: Musculoskeletal History: Reports: None, Other (See Below) Other Musculoskeletal History: "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"- at 15 Neurological History: Reports: None Psychiatric History: Reports: None Endocrine/Metabolic History: Reports: Diabetes, Gestational Other Endocrine/Metabolic History: went away after delivery Hematologic History: Reports: None Immunologic History: Reports: None Oncologic (Cancer) History: Reports: None Dermatologic History: Reports: None, Other (See Below) Other Dermatologic History: currently has rash on hands and feet - Infectious Disease History Infectious Disease History: Reports: Chicken Pox - Past Surgical History Head Surgeries/Procedures: Reports: None HEENT Surgical History: Reports: None Cardiovascular Surgical History: Reports: None Female Surgical History: Reports: Tubal Ligation, Other (See Below) Other Female Surgeries/Procedures: previous I&D of left breast Endocrine Surgical History: Reports: None Neurological Surgical History: Reports: None Dermatological Surgical History: Reports: None - SUBSTANCE USE Smoking Status *Q: Never Smoker Recreational Drug Use History: No - HOME MEDS Home Medications: Home Meds Amoxicillin/Clavulanate K [Augmentin 875-125 MG] 1 tab PO BID #14 tablet [Rx] Hydrocodone/Acetaminophen [Hydrocodon-Acetaminophen 5-325] 1 tab PO ASDIRECTED PRN 03/15/18 [History] - CURRENT (IN HOUSE) MEDS Current Meds: Current Medications Lactated Ringer's (Ringers, Lactated) 1,000 mls @ 125 mls/hr IV ASDIRECTED RAUL Sodium Chloride (Saline Flush) 10 ml FLUSH ASDIRECTED PRN PRN Reason: Keep Vein Open Sodium Chloride (Saline Flush) 2.5 ml FLUSH ASDIRECTED PRN PRN Reason: Keep Vein Open Discontinued Medications Bupivacaine HCl (Marcaine 0.5%) Confirm Administered Dose 30 ml .ROUTE .STK-MED ONE Stop: 03/19/18 10:21 Cefazolin Sodium (Ancef) Confirm Administered Dose 1 gm .ROUTE .STK-MED ONE Stop: 03/19/18 10:20 Fentanyl (Sublimaze) Confirm Administered Dose 250 mcg .ROUTE .STK-MED ONE Stop: 03/19/18 10:34 Cefazolin Sodium/Dextrose 1 gm (/ Premix) 50 mls @ 100 mls/hr IV ONETIME ONE Stop: 03/18/18 18:45 Cefoxitin Sodium (Mefoxin In Dextrose,Iso-Osm 1 Gm/50 Ml) Confirm Administered Dose 50 mls @ as directed .ROUTE .STK-MED ONE Stop: 03/19/18 10:41 Lidocaine (Xylocaine-Mpf 2%) Confirm Administered Dose 10 ml .ROUTE .STK-MED ONE Stop: 03/19/18 10:33 Midazolam HCl (Versed 1 Mg/Ml) Confirm Administered Dose 2 mg .ROUTE .STK-MED ONE Stop: 03/19/18 10:34 Ondansetron HCl (Zofran) Confirm Administered Dose 8 mg .ROUTE .STK-MED ONE Stop: 03/19/18 10:34 Propofol (Diprivan 20 Ml) Confirm Administered Dose 400 mg .ROUTE .STK-MED ONE Stop: 03/19/18 10:33
[2018-03-19] MEDS ORDERED: Ketorolac 30 MG/ML SDV ONE ×2 (12:53)
--- NOTE | 2018-03-19 13:05 | PCM.OPNOTE ---
- General Post-Op/Procedure Note Date of Surgery/Procedure: 03/19/18 Operative Procedure(s): Breast abscess incision and drainage Findings: Breast wounds: 1 cm x 1/2 cm, 2cm x 1cm x 5cm, 2 cm x 0.3 cm, 1 x 1 x 4cm Pre Op Diagnosis: Breast abscess, mastitis Post-Op Diagnosis: same Anesthesia Technique: MAC Primary Surgeon: Zeina Perez Condition: Good
--- NOTE | 2018-03-19 13:29 | PCM.POSTAN ---
POST ANESTHESIA ASSESSMENT - MENTAL STATUS Mental Status: Alert, Oriented - RESPIRATORY Respiratory Status: Respiratory Rate WNL, Airway Patent, O2 Saturation Stable - CARDIOVASCULAR CV Status: Pulse Rate WNL, Blood Pressure Stable - GASTROINTESTINAL GI Status: No Symptoms - PAIN Pain Score: 0 - POST OP HYDRATION Hydration Status: Adequate & Stable
--- NOTE | 2018-03-19 14:10 | PCM48HPAN ---
Post Anesthesia Note - EVALUATION WITHIN 48HRS OF ANESTHETIC Vital Signs in Normal Range: Yes Patient Participated in Evaluation: Yes Respiratory Function Stable: Yes Airway Patent: Yes Cardiovascular Function Stable: Yes Hydration Status Stable: Yes Pain Control Satisfactory: Yes Nausea and Vomiting Control Satisfactory: Yes Mental Status Recovered: Yes Resp Rate: 21 - COMMENTS/OBSERVATIONS Free Text/Narrative:: no anesthesia problems
[2018-03-19 14:22] VITALS: BP 114/68
--- NOTE | 2018-03-20 08:34 | OR ---
SURGEON: MARV DIALLO MD DATE OF PROCEDURE: 03/19/2018 PREOPERATIVE DIAGNOSIS: Breast abscess, chronic mastitis. POSTOPERATIVE DIAGNOSIS: Breast abscess, chronic mastitis. PROCEDURE PERFORMED: Incision and drainage of left breast abscess. ANESTHESIA: General LMA. FLUIDS: 900 mL of crystalloid. ESTIMATED BLOOD LOSS: 10 mL. FINDINGS: 4 lesions in the left upper outer quadrant of the breast, 2 of these contained purulent material tracked deep into the breast, and 2 of these were superficial. COMPLICATIONS: None. INDICATIONS: The patient is a 32-year-old female with chronic mastitis. I had previously drained 2 breast abscesses that she developed after starting a 3rd course of antibiotics. The patient had been healing well, but recently developed 2 new abscesses just superior to the previously drained areas. The patient was reluctant to undergo any further procedures and for the last 2 weeks has refused to let me drain these. They have now started draining on their own and are becoming necrotic. The patient is too tender to drain at bedside. The decision was made to go back to the OR to drain these 2 new abscesses and debride the wounds thoroughly. The patient and I discussed the procedure, expected perioperative course, the need for wound cares afterwards, and the risks including bleeding, infection, or damage to surrounding structures. The patient verbalized understanding and wishes to proceed. PROCEDURE IN DETAIL: The patient was brought in to the OR and placed on the OR table in supine position. A time-out was completed verifying the patient's name, age, date of , allergies, and procedure to be performed. General LMA anesthesia was induced. The left breast was prepped and draped in usual standard fashion. Upon inspection, the patient had 4 abscesses. These were all in the left upper outer quadrant. Abscess A was superior and in the 12 o'clock position. This abscess measured 1 cm x 1.5 cm in size. I explored the wound and it appeared to be very superficial. There was no un-drained collection of fluid. The wound had previously opened up and I debrided a small rim (2mm) of necrotic appearing tissue around this back to healthy bleeding tissue. I then turned my attention to the next abscess. Abscess B was located in approximately the 1 o'clock position in the left upper outer quadrant of the breast. This was fluctuant.. I used an 11 blade to make a cruciate incision over this. Thick purulent material was expressed. This fluid was cultured and sent for Gram stain, anaerobic and aerobic cultures. I debrided this wound and it was found to be 2 cm x 1 cm x 5 cm in size. It tracked deep into the breast. Breast wound C was one of the previously drained breast abscesses. This wound was very superficial and healing well with good granulation tissue in the base. It measured 2 cm x 0.3 cm. No further debridement was needed. The breast wound D was located in the 2-3 o'clock position and had been previously drained. This area had sealed over but was fluctuant. With minimal manipulation, the wound opened back up and I was able to express fair amount of purulent material from this wound again. I debrided necrotic tissue sharply with cautery and bluntly with a hemostat. The wound measured 1 x 1 x 4 cm in size. Breast wound B and D were copiously irrigated with normal saline. They did not appear to connect. A 0.25 inch iodoform Nu gauze was then packed in breast wound B and D. I then covered the breast with dry fluffs and secured it in place with tape. The patient tolerated the procedure well and was taken to PACU in stable condition. ELLIOT RODRIGUEZ /[id number]
== END 2018-03-19 14:00 | disposition home or self-care (01) ==
LOC: MW.SDS 09:56
PROVIDERS: ATTEND Surgery
DX: N61.1 Abscess of the breast and nipple (principal); N60.12 Diffuse cystic mastopathy of left breast; D64.9 Anemia, unspecified; K21.9 Gastro-esophageal reflux disease without esophagitis; Z79.2 Long term (current) use of antibiotics; Z79.899 Other long term (current) drug therapy; Z98.890 Other specified postprocedural states
CPT/HCPCS: 19020; 81025; 87070; 87075; 87205; J0694; J1885; J2250; J2405; J3010; J7120; 00400; J0690; J2704

== ENCOUNTER 2018-05-30 12:33 | Day surgery (SDC) | payer OTHER ==
[~2018-05-30 12:33] MED LIST changes: -Sodium Chloride 0.9% 10 ML Syringe FLUSH PRN; -Sodium Chloride 0.9% 2.5 ML Syringe FLUSH PRN; -ceFAZolin 1 GM in Premix Bag 1 BAG IV ONE
--- NOTE | 2018-05-30 13:10 | PCM.PREANE ---
Preanesthetic Assessment - Anesthesia/Transfusion/Family Hx Anesthesia History: Prior Anesthesia Without Reaction Family History of Anesthesia Reaction: No Transfusion History: No Prior Transfusion(s) Intubation History: Unknown - Review of Systems General: No Symptoms Pulmonary: No Symptoms Cardiovascular: No Symptoms Gastrointestinal: No Symptoms Neurological: No Symptoms Other: Reports: None - Physical Assessment Height: 1.57 m Weight: 60.328 kg ASA Class: 2 Mental Status: Alert & Oriented x3 Airway Class: Mallampati = 2 Dentition: Reports: Normal Dentition Thyro-Mental Finger Breadths: 3 Mouth Opening Finger Breadths: 3 ROM/Head Extension: Full Lungs: Clear to Auscultation, Normal Respiratory Effort Cardiovascular: Regular Rate, Regular Rhythm - Lab Values: Laboratory Last Values Urine HCG, Qual NEGATIVE (NEGATIVE) 05/30/18 12:12 - Allergies Allergies/Adverse Reactions: Allergies Allergy/AdvReac Type Severity Reaction Status Date / Time No Known Allergies Allergy Verified 05/29/18 16:06 - Blood Blood Available: No - Anesthesia Plan Pre-Op Medication Ordered: None - Acknowledgements Anesthesia Type Planned: General Anesthesia Pt an Appropriate Candidate for the Planned Anesthesia: Yes Alternatives and Risks of Anesthesia Discussed w Pt/Guardian: Yes Pt/Guardian Understands and Agrees with Anesthesia Plan: Yes PreAnesthesia Questionnaire - Past Health History Medical/Surgical History: Denies Medical/Surgical History HEENT History: Reports: Other (See Below) Other HEENT History: wears glasses Cardiovascular History: Reports: None Respiratory History: Reports: None Gastrointestinal History: Reports: GERD Genitourinary History: Reports: None 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: Musculoskeletal History: Reports: None, Other (See Below) Other Musculoskeletal History: "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 Currently has rash on hands and feet. - Infectious Disease History Infectious Disease History: Reports: Chicken Pox - Past Surgical History Female Surgical History: Reports: Tubal Ligation, Other (See Below) Other Female Surgeries/Procedures: I & D Breast abscess x2 - SUBSTANCE USE Smoking Status *Q: Never Smoker Recreational Drug Use History: No - HOME MEDS Home Medications: Home Meds Levothyroxine Sodium [Levoxyl] 50 mcg PO QAM 05/29/18 [History] - CURRENT (IN HOUSE) MEDS Current Meds: Current Medications Lactated Ringer's (Ringers, Lactated) 1,000 mls @ 125 mls/hr IV ASDIRECTED RAUL
--- NOTE | 2018-05-30 13:11 | PCM.PREANE ---
Preanesthetic Assessment - Anesthesia/Transfusion/Family Hx Anesthesia History: Prior Anesthesia Without Reaction Family History of Anesthesia Reaction: No Transfusion History: No Prior Transfusion(s) Intubation History: Unknown - Review of Systems Other: Reports: None - Physical Assessment O2 Sat by Pulse Oximetry: 97 Respiratory Rate: 16 Vital Signs: Last Vital Signs Temp 36.7 C 05/30/18 12:45 Pulse 76 05/30/18 12:45 Resp 16 05/30/18 12:45 BP 130/85 05/30/18 12:45 Pulse Ox 97 05/30/18 12:45 Height: 1.57 m Weight: 60.328 kg - Lab Values: Laboratory Last Values Urine HCG, Qual NEGATIVE (NEGATIVE) 05/30/18 12:12 - Allergies Allergies/Adverse Reactions: Allergies Allergy/AdvReac Type Severity Reaction Status Date / Time No Known Allergies Allergy Verified 05/29/18 16:06 - Blood Blood Available: No PreAnesthesia Questionnaire - Past Health History Medical/Surgical History: Denies Medical/Surgical History HEENT History: Reports: Other (See Below) Other HEENT History: wears glasses Cardiovascular History: Reports: None Respiratory History: Reports: None Gastrointestinal History: Reports: GERD Genitourinary History: Reports: None 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: Musculoskeletal History: Reports: None, Other (See Below) Other Musculoskeletal History: "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 Currently has rash on hands and feet. - Infectious Disease History Infectious Disease History: Reports: Chicken Pox - Past Surgical History Female Surgical History: Reports: Tubal Ligation, Other (See Below) Other Female Surgeries/Procedures: I & D Breast abscess x2 - SUBSTANCE USE Smoking Status *Q: Never Smoker Recreational Drug Use History: No - HOME MEDS Home Medications: Home Meds Levothyroxine Sodium [Levoxyl] 50 mcg PO QAM 05/29/18 [History] - CURRENT (IN HOUSE) MEDS Current Meds: Current Medications Lactated Ringer's (Ringers, Lactated) 1,000 mls @ 125 mls/hr IV ASDIRECTED RAUL
[2018-05-30] MEDS ORDERED: Lidocaine 2% 5 ML SDV ONE (13:20)
[2018-05-30] MEDS ORDERED: Ondansetron 4 MG/2 ML SDV ONE (13:21)
[2018-05-30] MEDS ORDERED: Midazolam 1 MG/ML 2 ML SDV ONE (13:21)
[2018-05-30] MEDS ORDERED: fentaNYL 250 MCG/5 ML SDV ONE (13:21)
[2018-05-30] MEDS ORDERED: Propofol 200 MG/20 ML SDV ONE (13:21)
[2018-05-30] MEDS ORDERED: Sodium Chloride 0.9% 20 ML ONE (14:01)
[2018-05-30] MEDS ORDERED: ceFAZolin 1 GM Vial ONE (14:01)
[2018-05-30] MEDS ORDERED: Lidocaine 1% with EPINEPHrine 1:100,000 10 ML MDV ONE (14:02)
--- NOTE | 2018-05-30 15:07 | PCM.OPNOTE ---
- General Post-Op/Procedure Note Date of Surgery/Procedure: 05/30/18 Operative Procedure(s): Incision and drainge left breast abscess Findings: 2 x 2 x 2 cm breast abscess at 12 oclock position extending over to the 3 oclock position. Appears to communicate with 3 oclock skin wound Pre Op Diagnosis: Chronic mastitis, breast abscess Post-Op Diagnosis: same Anesthesia Technique: MAC Primary Surgeon: Zeina Perez Fluid Replacement, Intraop: 900 EBL in mLs: 2 Condition: Good
[2018-05-30] MEDS ORDERED: fentaNYL 100 MCG/2 ML SDV IVPUSH PRN (15:19)
--- NOTE | 2018-05-30 15:58 | PCM48HPAN ---
Post Anesthesia Note - EVALUATION WITHIN 48HRS OF ANESTHETIC Vital Signs in Normal Range: Yes Patient Participated in Evaluation: Yes Respiratory Function Stable: Yes Airway Patent: Yes Cardiovascular Function Stable: Yes Hydration Status Stable: Yes Pain Control Satisfactory: Yes Nausea and Vomiting Control Satisfactory: Yes Mental Status Recovered: Yes Resp Rate: 14
[2018-05-30 16:10] VITALS: BP 118/67
--- NOTE | 2018-05-30 16:47 | OR ---
SURGEON: MARV DIALLO MD DATE OF PROCEDURE: 05/30/2018 PREOPERATIVE DIAGNOSIS: Left breast abscess. POSTOPERATIVE DIAGNOSIS: Left breast abscess. PROCEDURE PERFORMED: Incision and drainage of left breast abscess. ANESTHESIA: MAC. FLUIDS: 900 mL of crystalloid. ESTIMATED BLOOD LOSS: 2 mL. FINDINGS: 2 x 2 x 2 cm breast abscess in the 12 o'clock position extending over to the 3 o'clock position and connecting with a second skin opening. COMPLICATIONS: None. INDICATIONS: The patient is a 33-year-old female with chronic mastitis secondary to hyperprolactinemia. She has undergone two previous incision and drainages of breast abscesses with ok. Her breast is healing and she is on the correct medications. However, she has a residual breast abscess at the 12 o'clock position, which was confirmed with preoperative ultrasound. The decision was made to perform an incision and drainage of this. We discussed the procedure, expected perioperative course, and risks including bleeding, infection, or damage to surrounding structures. The patient verbalized understanding and wishes to proceed. PROCEDURE IN DETAIL: The patient was brought to the OR and placed on the OR table in supine position. A time-out was completed verifying the patient's name, age, date of , allergies, and procedure to be performed. Monitored anesthesia care was induced. The left breast was prepped and draped in usual standard fashion. 1% lidocaine with epinephrine was used to anesthetize the left upper outer quadrant of the breast. Using a hemostat, I explored her two previous breast wounds. The 12 o'clock breast wound tracked inferiorly and then towards the 3 o'clock position. A small amount of purulent material was encountered. The wound was copiously irrigated. No loculations were taken down bluntly. I explored the 3 o'clock wound with hemostat. It retracted inferiorly, but I could not find a connection to the 12 o'clock wound cavity. I copiously irrigated the abscess cavity and measured it, it measured 2 x 2 x 2 cm in size. The wound was then packed with one inch iodoform gauze and covered with 4 x 4 gauze, which was secured in place with tape. The patient tolerated the procedure well and was taken to PACU in stable condition. ELLIOT / MICHAEL /[id number]
== END 2018-05-30 16:26 | disposition home or self-care (01) ==
LOC: MW.SDS 12:33
PROVIDERS: ATTEND Surgery
DX: N61.1 Abscess of the breast and nipple (principal); D64.9 Anemia, unspecified; K21.9 Gastro-esophageal reflux disease without esophagitis; E22.9 Hyperfunction of pituitary gland, unspecified; E03.9 Hypothyroidism, unspecified; Z79.899 Other long term (current) drug therapy; Z98.890 Other specified postprocedural states
CPT/HCPCS: 10060; 81025; J0690; J2250; J2405; J2704; J3010; J7120

== ENCOUNTER 2018-11-02 15:51 | Emergency (ER) | payer OTHER ==
[2018-11-02] MEDS ORDERED: diphenhydrAMINE 50 MG/ML SDV IVPUSH ONE (15:53)
[2018-11-02] MEDS ORDERED: EPINEPHrine 1 MG/ML SDV IM ONE (15:53)
[2018-11-02] MEDS ORDERED: Sodium Chloride 0.9% 1,000 ML IV ONE ×2 (15:53→16:48)
[2018-11-02] MEDS ORDERED: methylPREDNISolone Sodium Succinate 125 MG/2 ML SDV IVPUSH ONE (15:53)
[2018-11-02] MEDS ORDERED: Famotidine 20 MG/2 ML SDV IVPUSH ONE (15:55)
--- NOTE | 2018-11-02 15:56 | EDM.PDOC ---
ED HPI GENERAL MEDICAL PROBLEM - General Stated Complaint: CHEST PAIN THROAT SWELLING Time Seen by Provider: 11/02/18 15:51 Source of Information: Reports: Patient History Limitations: Reports: No Limitations - History of Present Illness INITIAL COMMENTS - FREE TEXT/NARRATIVE: HISTORY AND PHYSICAL: History of present illness: Patient is a 33-year-old female who presents to the emergency room with complaints of hives, sensation of her throat closing and chest pain. Patient does appear anxious as she is being triaged. She is unsure if she came into contact with anything that would cause her symptoms. She states she does have food allergies to pistachios, but has not been exposed to anything type of nuts. Has not taken any new medications or cbrg-ays-vadistt supplements/ products. Review of systems: As per history of present illness and below otherwise all systems reviewed and negative. Past medical history: As per history of present illness and as reviewed below otherwise noncontributory. Surgical history: As per history of present illness and as reviewed below otherwise noncontributory. Social history: See social history for further information Family history: As per history of present illness and as reviewed below otherwise noncontributory. Physical exam: General: Well-developed and well-nourished 33-year-old female. Alert and oriented. Anxious but nontoxic appearing. HEENT: Atraumatic, normocephalic, pupils equal and reactive bilaterally, negative for conjunctival pallor or scleral icterus, mucous membranes moist, TMs normal bilaterally, throat clear, neck supple, nontender, trachea midline. No drooling or trismus noted. No meningeal signs. No hot potato voice noted. Lungs: Clear to auscultation, breath sounds equal bilaterally, chest nontender. Heart: S1S2, regular rate and rhythm without overt murmur Abdomen: Soft, nondistended, nontender. Negative for masses or hepatosplenomegaly. Negative for costovertebral tenderness. Pelvis: Stable nontender. Genitourinary: Deferred. Rectal: Deferred. Skin: Hives noted to the neck, trunk and bilat groin. Otherwise skin is intact, warm, dry. No lesions noted. Extremities: Atraumatic, negative for cords or calf pain. Neurovascular unremarkable. Neuro: Awake, alert, oriented. Cranial nerves II through XII unremarkable. Cerebellum unremarkable. Motor and sensory unremarkable throughout. Exam nonfocal. Notes: Patient reports that she feels improved after the IV medications. She still has chest pain, EKG shows a normal sinus rhythm with a rate of 85. Vital signs are stable. We'll give her a GI cocktail and some Toradol and continue to monitor. Vital signs are stable. Hives have subsided. Denies any itching. Chest pain is resolved. Patient feels much improved. We'll discharge patient to home with thorough education. Denies any further questions or concerns at this time. Diagnostics: EKG Therapeutics: Solumedrol, Famotidine, Benadryl, IV fluids Prescription: EpiPen Medrol Dosepak Impression: Allergic Reaction Plan: 1. Avoid contact with an known triggers. 2. Please routinely take Benadryl (H1 Monserrat) and Pepcid (H2 Monserrat) over the next several days. H1 and H2 antihistamines in combination are more effective in alleviating symptoms. 3. Fill your prescription for the EpiPen and keep available. In the event you use your EpiPen in the future, please seek medical attention immediately after injection. 4. Follow up with your primary care provider in the next 1-2 days. Return to the ED as needed and as discussed. Definitive disposition and diagnosis as appropriate pending reevaluation and review of above. chest Pain Score (Numeric/FACES): 6 - Related Data Allergies Allergy/AdvReac Type Severity Reaction Status Date / Time pistachio nut Allergy Hives Verified 11/02/18 15:56 Home Meds: Home Meds Levothyroxine Sodium [Levoxyl] 50 mcg PO QAM 05/29/18 [History] EPINEPHrine [Epipen 2-Rickey] 0.3 mg IJ ASDIRECTED PRN #1 package 11/02/18 [Rx] methylPREDNISolone [Medrol] 1 dose PO DAILY #1 dosepk 11/02/18 [Rx] Past Medical History - Past Health History Medical/Surgical History: Denies Medical/Surgical History HEENT History: Reports: Other (See Below) Other HEENT History: wears glasses Cardiovascular History: Reports: None Respiratory History: Reports: None Gastrointestinal History: Reports: GERD Genitourinary History: Reports: None 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: Musculoskeletal History: Reports: None, Other (See Below) Other Musculoskeletal History: "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 Currently has rash on hands and feet. - Infectious Disease History Infectious Disease History: Reports: Chicken Pox - Past Surgical History Female Surgical History: Reports: Tubal Ligation, Other (See Below) Other Female Surgeries/Procedures: I & D Breast abscess x2 Social & Family History - Family History Family Medical History: Noncontributory Hematologic: Reports: Anemia - Caffeine Use Caffeine Use: Reports: None ED ROS ALLERGIC REACTION - Review of Systems Review Of Systems: ROS reveals no pertinent complaints other than HPI. ED EXAM GENERAL NO PERIP PULSE - Physical Exam Exam: See Below (See dictation) Course - Vital Signs Last Recorded V/S: Last Vital Signs Temp 96.7 F 11/02/18 15:56 Pulse 130 H 11/02/18 15:56 Resp 24 H 11/02/18 15:56 BP 150/105 H 11/02/18 15:56 Pulse Ox 97 11/02/18 15:56 - Orders/Labs/Meds Orders: Active Orders 24 hr Category Date Time Status EKG Documentation Completion [RC] STAT Care 11/02/18 16:17 Active Sodium Chloride 0.9% [Normal Saline] 1,000 ml Med 11/02/18 16:48 Active IV STAT Medication Orders Sodium Chloride (Normal Saline) 1,000 mls @ 999 mls/hr IV STAT ONE Stop: 11/02/18 17:48 Last Admin: 11/02/18 17:19 Dose: 999 mls/hr Meds: Medications Generic Name Dose Route Start Last Admin Trade Name Freq PRN Reason Stop Dose Admin Sodium Chloride 1,000 mls @ 999 mls/hr 11/02/18 16:48 11/02/18 17:19 Normal Saline IV 11/02/18 17:48 999 mls/hr STAT ONE Administration Discontinued Medications Generic Name Dose Route Start Last Admin Trade Name Freq PRN Reason Stop Dose Admin Al Hydroxide/Mg Hydroxide 15 0 ml 11/02/18 16:42 11/02/18 16:51 ml/ Lidocaine HCl 5 ml PO 11/02/18 16:43 1 each ONETIME ONE Administration Diphenhydramine HCl 50 mg 11/02/18 15:53 11/02/18 16:11 Benadryl IVPUSH 11/02/18 15:54 50 mg ONETIME ONE Administration Epinephrine HCl 0.5 mg 11/02/18 15:53 11/02/18 16:38 Adrenalin IM 11/02/18 15:54 Not Given ONETIME ONE Famotidine 20 mg 11/02/18 15:55 11/02/18 16:11 Pepcid IVPUSH 11/02/18 15:56 20 mg ONETIME ONE Administration Sodium Chloride 1,000 mls @ 999 mls/hr 11/02/18 15:53 11/02/18 16:11 Normal Saline IV 11/02/18 16:53 999 mls/hr STAT ONE Administration Ketorolac Tromethamine 30 mg 11/02/18 16:49 11/02/18 16:54 Toradol IVPUSH 11/02/18 16:50 30 mg ONETIME ONE Administration Methylprednisolone Sodium Succinate 125 mg 11/02/18 15:53 11/02/18 16:11 Solu-Medrol IVPUSH 11/02/18 15:54 125 mg ONETIME ONE Administration Departure - Departure Time of Disposition: 17:47 Disposition: Home, Self-Care 01 Clinical Impression: Allergic reaction Qualifiers: Encounter type: initial encounter Qualified Code(s): T78.40XA - Allergy, unspecified, initial encounter - Discharge Information Prescriptions: EPINEPHrine [Epipen 2-Rickey] 0.3 mg IJ ASDIRECTED PRN #1 package PRN Reason: Allergies methylPREDNISolone [Medrol] 1 dose PO DAILY #1 dosepk Referrals: PCP,Unknown [Primary Care Provider] - Additional Instructions: The following information is given to patients seen in the emergency department who are being discharged to home. This information is to outline your options for follow-up care. We provide all patients seen in our emergency department with a follow-up referral. The need for follow-up, as well as the timing and circumstances, are variable depending upon the specifics of your emergency department visit. If you don't have a primary care physician on staff, we will provide you with a referral. We always advise you to contact your personal physician following an emergency department visit to inform them of the circumstance of the visit and for follow-up with them and/or the need for any referrals to a consulting specialist. The emergency department will also refer you to a specialist when appropriate. This referral assures that you have the opportunity for follow-up care with a specialist. All of these measure are taken in an effort to provide you with optimal care, which includes your follow-up. Under all circumstances we always encourage you to contact your private physician who remains a resource for coordinating your care. When calling for follow-up care, please make the office aware that this follow-up is from your recent emergency room visit. If for any reason you are refused follow-up, please contact the [facility] Emergency Department at and asked to speak to the emergency department charge nurse. [facility] [address] [place] [id number] [facility] [address] [place] [id number] 1. Avoid contact with an known triggers. 2. Please routinely take Benadryl (H1 Monserrat) and Pepcid (H2 Monserrat) over the next several days. H1 and H2 antihistamines in combination are more effective in alleviating symptoms. 3. Fill your prescription for the EpiPen and keep available. In the event you use your EpiPen in the future, please seek medical attention immediately after injection. 4. Follow up with your primary care provider in the next 1-2 days. Return to the ED as needed and as discussed. - My Orders Last 24 Hours: My Active Orders 11/02/18 16:17 EKG Documentation Completion [RC] STAT 11/02/18 16:48 Sodium Chloride 0.9% [Normal Saline] 1,000 ml IV STAT - Assessment/Plan Last 24 Hours: My Active Orders 11/02/18 16:17 EKG Documentation Completion [RC] STAT 11/02/18 16:48 Sodium Chloride 0.9% [Normal Saline] 1,000 ml IV STAT
[2018-11-02] MEDS ORDERED: Alum Hydrox/Mag Hydrox/Simeth 15 ML, Lidocaine 2% 5 ML PO ONE ×2 (16:42)
[2018-11-02] MEDS ORDERED: Ketorolac 30 MG/ML SDV IVPUSH ONE (16:49)
[2018-11-02 18:32] VITALS: BP 138/88
== END 2018-11-02 18:07 | disposition home or self-care (01) ==
LOC: MW.ED 15:51
DX: L50.0 Allergic urticaria (principal); T78.40XA Allergy, unspecified, initial encounter; Z91.018 Allergy to other foods; Z79.899 Other long term (current) drug therapy
CPT/HCPCS: 93005; 96361; 96374; 96375; 99283; A9270; J1200; J1885; J2930; J3490; J7040

== ENCOUNTER 2018-11-03 04:10 | Emergency (ER) | payer OTHER ==
[2018-11-03] MEDS ORDERED: methylPREDNISolone Sodium Succinate 125 MG/2 ML SDV IVPUSH ONE (04:20)
[2018-11-03] MEDS ORDERED: diphenhydrAMINE 50 MG/ML SDV IVPUSH ONE (04:20)
[2018-11-03] MEDS ORDERED: EPINEPHrine 1 MG/ML SDV SUBCUT ONE (04:21)
--- NOTE | 2018-11-03 05:32 | CR ---
INDICATION: Cough, short TECHNIQUE: Chest 2 views. COMPARISON: None FINDINGS: Cardiovascular and mediastinum: Heart size and vasculature are normal in caliber and appearance. Mediastinum is within normal limits. Lungs and pleural spaces: Lungs are clear. No sign of infiltrate or mass. No sign of pleural effusion. No pneumothorax. Bones and soft tissues: No significant findings. IMPRESSION: No sign of acute disease. Dictated by Nadia Smith MD @ Nov 03 2018 5:30AM Signed by Dr. Nadia Smith @ Nov 03 2018 5:31AM
--- NOTE | 2018-11-03 05:34 | CR ---
INDICATION: Cough, shortness of breath, difficulty swallowing TECHNIQUE: Soft tissue neck 2 view. COMPARISON: None FINDINGS: The airway is patent and normal. Epiglottis is normal. The retropharyngeal soft tissues are normal. No obvious masses. The visualized cervical spine demonstrates no significant findings. IMPRESSION: Unremarkable soft tissue view of the neck. Dictated by Nadia Smith MD @ Nov 03 2018 5:32AM Signed by Dr. Nadia Smith @ Nov 03 2018 5:32AM
--- NOTE | 2018-11-03 06:37 | EDM.PDOC ---
ED HPI GENERAL MEDICAL PROBLEM - General Chief Complaint: ENT Problem Stated Complaint: HIVES Time Seen by Provider: 11/03/18 06:33 - History of Present Illness INITIAL COMMENTS - FREE TEXT/NARRATIVE: HISTORY AND PHYSICAL: History of present illness: Patient is a 33-year-old female who is seen in the yesterday for angioedema involving her tongue was evaluated treated discharged home she failed to fill her prescriptions and returns with same she denies shortness of breath dysphonia or dysphagia Review of systems: As per history of present illness and below otherwise all systems reviewed and negative. Past medical history: As per history of present illness and as reviewed below otherwise noncontributory. Surgical history: As per history of present illness and as reviewed below otherwise noncontributory. Social history: No reported history of drug or alcohol abuse. Family history: As per history of present illness and as reviewed below otherwise noncontributory. Physical exam: HEENT: Atraumatic, normocephalic, pupils reactive, negative for conjunctival pallor or scleral icterus, mucous membranes moist, throat clear, patient is noted to have some angioedema of her tongue noted neck supple, nontender, trachea midline. Lungs: Clear to auscultation, breath sounds equal bilaterally, chest nontender. Heart: S1S2, regular, negative for clicks, rubs, or JVD. Abdomen: Soft, nondistended, nontender. Negative for masses or hepatosplenomegaly. Negative for costovertebral tenderness. Pelvis: Stable nontender. Genitourinary: Deferred. Rectal: Deferred. Extremities: Atraumatic, negative for cords or calf pain. Neurovascular unremarkable. Neuro: Awake, alert, oriented. Cranial nerves II through XII unremarkable. Cerebellum unremarkable. Motor and sensory unremarkable throughout. Exam nonfocal. Diagnostics: Chest x-ray soft tissue neck Therapeutics: Epinephrine 0.3 intramuscular sorry Medrol 125 IV Benadryl 50 IV Impression: #1 angioedema Definitive disposition and diagnosis as appropriate pending reevaluation and review of above. tongue Pain Score (Numeric/FACES): 6 - Related Data Allergies Allergy/AdvReac Type Severity Reaction Status Date / Time pistachio nut Allergy Hives Verified 11/03/18 04:21 Home Meds: Home Meds Levothyroxine Sodium [Levoxyl] 50 mcg PO QAM 05/29/18 [History] EPINEPHrine [Epipen 2-Rickey] 0.3 mg IJ ASDIRECTED PRN #1 package 11/02/18 [Rx] methylPREDNISolone [Medrol] 1 dose PO DAILY #1 dosepk 11/02/18 [Rx] Past Medical History - Past Health History Medical/Surgical History: Denies Medical/Surgical History HEENT History: Reports: Other (See Below) Other HEENT History: wears glasses Cardiovascular History: Reports: None Respiratory History: Reports: None Gastrointestinal History: Reports: GERD Genitourinary History: Reports: None 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: Musculoskeletal History: Reports: None, Other (See Below) Other Musculoskeletal History: "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 Currently has rash on hands and feet. - Infectious Disease History Infectious Disease History: Reports: Chicken Pox - Past Surgical History Female Surgical History: Reports: Tubal Ligation, Other (See Below) Other Female Surgeries/Procedures: I & D Breast abscess x2 Social & Family History - Family History Family Medical History: Noncontributory Hematologic: Reports: Anemia - Caffeine Use Caffeine Use: Reports: None ED ROS GENERAL - Review of Systems Review Of Systems: ROS reveals no pertinent complaints other than HPI. ED EXAM, GENERAL - Physical Exam Exam: See Below (See dictation) Course - Vital Signs Text/Narrative:: Patient had an unremarkable ED course is marked improvement and is requesting discharge I discussed with her admission for observation as an option she declines she states she will fill her prescriptions that were given to her on her earlier visit follow up with her doctor return as needed as discussed Last Recorded V/S: Last Vital Signs Temp 36.3 C 11/03/18 04:18 Pulse 89 11/03/18 05:03 Resp 18 11/03/18 05:03 BP 132/86 11/03/18 05:03 Pulse Ox 98 11/03/18 05:03 - Orders/Labs/Meds Meds: Medications Discontinued Medications Generic Name Dose Route Start Last Admin Trade Name Chloé PRNataliia Reason Stop Dose Admin Diphenhydramine HCl 50 mg 11/03/18 04:20 11/03/18 04:36 Benadryl IVPUSH 11/03/18 04:21 50 mg ONETIME ONE Administration Epinephrine HCl 0.3 mg 11/03/18 04:21 11/03/18 04:36 Adrenalin SUBCUT 11/03/18 04:22 0.3 mg ONETIME ONE Administration Methylprednisolone Sodium Succinate 125 mg 11/03/18 04:20 11/03/18 04:36 Solu-Medrol IVPUSH 11/03/18 04:21 125 mg ONETIME ONE Administration Departure - Departure Time of Disposition: 06:36 Disposition: Home, Self-Care 01 Condition: Good Clinical Impression: Angioedema - Discharge Information Referrals: PCP,None [Primary Care Provider] - Additional Instructions: The following information is given to patients seen in the emergency department who are being discharged to home. This information is to outline your options for follow-up care. We provide all patients seen in our emergency department with a follow-up referral. The need for follow-up, as well as the timing and circumstances, are variable depending upon the specifics of your emergency department visit. If you don't have a primary care physician on staff, we will provide you with a referral. We always advise you to contact your personal physician following an emergency department visit to inform them of the circumstance of the visit and for follow-up with them and/or the need for any referrals to a consulting specialist. The emergency department will also refer you to a specialist when appropriate. This referral assures that you have the opportunity for followup care with a specialist. All of these measure are taken in an effort to provide you with optimal care, which includes your followup. Under all circumstances we always encourage you to contact your private physician who remains a resource for coordinating your care. When calling for followup care, please make the office aware that this follow-up is from your recent emergency room visit. If for any reason you are refused follow-up, please contact the [facility] emergency department at and asked to speak to the emergency department charge nurse. Medications as directed follow up primary medical doctor return as needed as discussed
[2018-11-03 06:58] VITALS: BP 124/73
== END 2018-11-03 06:45 | disposition home or self-care (01) ==
LOC: MW.ED 04:10
DX: T78.3XXA Angioneurotic edema, initial encounter (principal); K21.9 Gastro-esophageal reflux disease without esophagitis; E03.9 Hypothyroidism, unspecified; Z91.018 Allergy to other foods; Z79.899 Other long term (current) drug therapy
CPT/HCPCS: 70360; 71046; 96372; 96374; 96375; 99284; J0171; J1200; J2930

== ENCOUNTER 2018-11-03 20:01 | Emergency (ER) | payer OTHER ==
--- NOTE | 2018-11-03 20:06 | EDM.PDOC ---
ED HPI GENERAL MEDICAL PROBLEM - General Chief Complaint: Skin Complaint Stated Complaint: PT HAS RASH OVER BODY Time Seen by Provider: 11/03/18 20:02 Source of Information: Reports: Patient History Limitations: Reports: No Limitations - History of Present Illness INITIAL COMMENTS - FREE TEXT/NARRATIVE: HISTORY AND PHYSICAL: History of present illness: Patient is a 33-year-old female who presents to the emergency room with complaints of hives. This is her third evaluation in the emergency room for this. Yesterday afternoon she developed hives/rash, itching, sensation of chest and throat tightness. During the previous 2 evaluations she has had IV fluid, Benadryl, Solu-Medrol and Pepcid. She was given a prescription for a Medrol Dosepak but had not started this medication until noon today. Her last dose of Benadryl was also at noon today. Subsequently she has missed a few doses of both Medrol and Benadryl. She states when she leaves the emergency room she does feel somewhat improved but a few hours later does have return of symptoms. Currently complaining of hives, itching and the sensation of her throat feeling tight. She has no difficulty breathing and oxygen saturation is within normal limits. She had previously been offered admission which she declines. Her only known allergy is of pistachios she has never had any formal allergy testing. She denies any fever, chills, chest pain, shortness of breath or cough. She denies any abdominal pain, nausea, vomiting, diarrhea, constipation or dysuria. Review of systems: As per history of present illness and below otherwise all systems reviewed and negative. Past medical history: As per history of present illness and as reviewed below otherwise noncontributory. Surgical history: As per history of present illness and as reviewed below otherwise noncontributory. Social history: See social history for further information Family history: As per history of present illness and as reviewed below otherwise noncontributory. Physical exam: General: Well-developed and well-nourished 33-year-old female. Alert and oriented. Nontoxic appearing, anxious but in no acute distress HEENT: Atraumatic, normocephalic, pupils equal and reactive bilaterally, negative for conjunctival pallor or scleral icterus, mucous membranes moist, TMs normal bilaterally, throat clear, neck supple, nontender, trachea midline. No drooling or trismus noted. No meningeal signs. No hot potato voice noted. Lungs: Clear to auscultation, breath sounds equal bilaterally, chest nontender. No difficulty or noisy breathing. Heart: S1S2, regular rate and rhythm without overt murmur Abdomen: Soft, nondistended, nontender. Negative for masses or hepatosplenomegaly. Negative for costovertebral tenderness. Pelvis: Stable nontender. Genitourinary: Deferred. Rectal: Deferred. Skin: Patient does have hives scattered throughout the body, mainly to the lower trunk and groin. Patient continually is scratching at her skin. Otherwise skin is warm and dry. No lesions noted. Extremities: Atraumatic, moves all per self, negative for cords or calf pain. Neurovascular unremarkable. Neuro: Awake, alert, oriented. Cranial nerves II through XII unremarkable. Cerebellum unremarkable. Motor and sensory unremarkable throughout. Exam nonfocal. Notes: Dr Whitney was involved in this case and thoroughly explained the need to adhere to the supportive care measures (benadryl/zantac etc..) and medrol dosepak. We will give IV Solu-Medrol, Benadryl, famotidine and fluids. No stridor, work of breathing, or noisy respirations. No tongue swelling. LS clear. She does appear anxious as she states "I just can't keep itching like this". She is agreeable to medication administration as she is behind on her prescribed oral medications. IV meds/fluids completed. Patient states she feels improved, hives have reduced in itching is minimal. Vital signs are stable. Discharge instructions were again thoroughly reinforced. We'll prescribe a new Medrol Dosepak as the previous when she had does not appear to be correct dosing as she states it is not labeled. She voices understanding and is agreeable to plan of care. Denies any further questions or concerns at this time. Diagnostics: None Therapeutics: Solu-Medrol, Benadryl, famotidine, IV fluid Prescription: Medrol Dosepak Impression: Allergic reaction, urticaria Plan: 1. Avoid triggers. Continue to monitor for possible exposures/triggers/foods. 2. While symptomatic continue to routinely take Benadryl 50mg every 4-6 hours and Zantac 150mg twice daily. Take the Medrol dose pack as prescribed. 3. Carry your Epi-Pen with you at all times. Use in the case of an emergency and call 911 and/or present to the ER. 4. You may use topical calamine lotion, cool tempid oatmeal baths, Aveeno bath/ lotions. 5. Consider formal allergy testing once you have completed your medications and have improved. Closest facility is [facility]: Allergy and Immunology , but you can follow up at facility of your choice. 6. Please follow up with your Primary care doctor tomorrow. Return to the ED as needed and as discussed. Definitive disposition and diagnosis as appropriate pending reevaluation and review of above. Duration: Day(s): Location: Reports: Generalized skin Pain Score (Numeric/FACES): 6 - Related Data Allergies Allergy/AdvReac Type Severity Reaction Status Date / Time pistachio nut Allergy Hives Verified 11/03/18 20:09 Home Meds: Home Meds Levothyroxine Sodium [Levoxyl] 50 mcg PO QAM 05/29/18 [History] EPINEPHrine [Epipen 2-Rickey] 0.3 mg IJ ASDIRECTED PRN #1 package 11/02/18 [Rx] methylPREDNISolone [Medrol] 1 dose PO DAILY #1 dosepk 11/02/18 [Rx] Past Medical History - Past Health History Medical/Surgical History: Denies Medical/Surgical History HEENT History: Reports: Other (See Below) Other HEENT History: wears glasses Cardiovascular History: Reports: None Respiratory History: Reports: None Gastrointestinal History: Reports: GERD Genitourinary History: Reports: None GAUGER DELIVERY History: Reports: Musculoskeletal History: Reports: None, Other (See Below) Other Musculoskeletal History: "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 Currently has rash on hands and feet. - Infectious Disease History Infectious Disease History: Reports: Chicken Pox - Past Surgical History Female Surgical History: Reports: Tubal Ligation, Other (See Below) Other Female Surgeries/Procedures: I & D Breast abscess x2 Social & Family History - Family History Family Medical History: Noncontributory Hematologic: Reports: Anemia - Caffeine Use Caffeine Use: Reports: None ED ROS GENERAL - Review of Systems Review Of Systems: ROS reveals no pertinent complaints other than HPI. ED EXAM, SKIN/RASH Exam: See Below (See dictation) Course - Vital Signs Last Recorded V/S: Last Vital Signs Temp 98.2 F 11/03/18 20:01 Pulse 114 H 11/03/18 20:01 Resp 18 11/03/18 20:01 BP 156/100 H 11/03/18 20:01 Pulse Ox 98 11/03/18 20:01 - Orders/Labs/Meds Meds: Medications Discontinued Medications Generic Name Dose Route Start Last Admin Trade Name Freq PRN Reason Stop Dose Admin Diphenhydramine HCl 50 mg 11/03/18 20:26 11/03/18 20:42 Benadryl IVPUSH 11/03/18 20:27 50 mg ONETIME ONE Administration Famotidine 20 mg 11/03/18 20:27 11/03/18 20:44 Pepcid IVPUSH 11/03/18 20:28 20 mg ONETIME ONE Administration Sodium Chloride 1,000 mls @ 999 mls/hr 11/03/18 20:26 11/03/18 20:38 Normal Saline IV 11/03/18 21:26 999 mls/hr STAT ONE Administration Methylprednisolone Sodium Succinate 125 mg 11/03/18 20:26 11/03/18 20:40 Solu-Medrol IVPUSH 11/03/18 20:27 125 mg ONETIME ONE Administration Departure - Departure Time of Disposition: 20:43 Disposition: Home, Self-Care 01 Clinical Impression: Allergic reaction, urticaria - Discharge Information Referrals: PCP,None [Primary Care Provider] - Forms: ED Department Discharge Additional Instructions: The following information is given to patients seen in the emergency department who are being discharged to home. This information is to outline your options for follow-up care. We provide all patients seen in our emergency department with a follow-up referral. The need for follow-up, as well as the timing and circumstances, are variable depending upon the specifics of your emergency department visit. If you don't have a primary care physician on staff, we will provide you with a referral. We always advise you to contact your personal physician following an emergency department visit to inform them of the circumstance of the visit and for follow-up with them and/or the need for any referrals to a consulting specialist. The emergency department will also refer you to a specialist when appropriate. This referral assures that you have the opportunity for follow-up care with a specialist. All of these measure are taken in an effort to provide you with optimal care, which includes your follow-up. Under all circumstances we always encourage you to contact your private physician who remains a resource for coordinating your care. When calling for follow-up care, please make the office aware that this follow-up is from your recent emergency room visit. If for any reason you are refused follow-up, please contact the [facility] Emergency Department at and asked to speak to the emergency department charge nurse. [facility] [address] [place] [id number] [place] [address] 1. Avoid triggers. Continue to monitor for possible exposures/triggers/foods. 2. While symptomatic continue to routinely take Benadryl 50mg every 4-6 hours and Zantac 150mg twice daily. Take the Medrol dose pack as prescribed. 3. Carry your Epi-Pen with you at all times. Use in the case of an emergency and call [phone] and/or present to the ER. 4. You may use topical calamine lotion, cool tempid oatmeal baths, Aveeno bath/ lotions. 5. Consider formal allergy testing once you have completed your medications and have improved. 6. Please follow up with your Primary care doctor tomorrow. Return to the ED as needed and as discussed.
[2018-11-03] MEDS ORDERED: Sodium Chloride 0.9% 1,000 ML IV ONE (20:26)
[2018-11-03] MEDS ORDERED: diphenhydrAMINE 50 MG/ML SDV IVPUSH ONE (20:26)
[2018-11-03] MEDS ORDERED: methylPREDNISolone Sodium Succinate 125 MG/2 ML SDV IVPUSH ONE (20:26)
[2018-11-03] MEDS ORDERED: Famotidine 20 MG/2 ML SDV IVPUSH ONE (20:27)
[2018-11-03 21:40] VITALS: BP 138/89
== END 2018-11-03 21:55 | disposition home or self-care (01) ==
LOC: MW.ED 20:01
DX: L50.0 Allergic urticaria (principal); N61.1 Abscess of the breast and nipple; E03.9 Hypothyroidism, unspecified; Z98.51 Tubal ligation status; Z91.018 Allergy to other foods; Z98.890 Other specified postprocedural states; Z79.899 Other long term (current) drug therapy
CPT/HCPCS: 96361; 96374; 96375; 99282; J1200; J2930; J3490; J7040